=== PATIENT | male | born 1955 | race Caucasian/White ===

== ENCOUNTER 2016-08-08 19:36 | Observation (INO) | payer OTHER ==
[2016-08-08] MEDS ORDERED: ASPIRIN 325 MG TABLET PO ONE (19:57)
--- NOTE | 2016-08-08 20:00 | ER Document Report ---
ED Medical Screen (RME) - General Chief Complaint: Chest Pain Stated Complaint: CHEST PAIN Time Seen by Provider: 08/08/16 19:49 Notes: The patient is a 60-year-old male, past medical history hypertension, diabetes, presents with 1 day of intermittent substernal and left-sided chest pressure that is associated with heat, and not associated with exertion or food. His last stress test was in [place] last year, which he said was normal. He was pushing the cart in the shopping center today and noticed worsening chest pain, diaphoresis and he became pale. Patient currently without chest pain. PE: NAD. RRR. Lungs CTAB. I have greeted and performed a rapid initial assessment of this patient. A comprehensive ED assessment and evaluation of the patient, analysis of test results and completion of the medical decision making process will be conducted by additional ED providers. TRAVEL OUTSIDE OF THE [place] IN LAST 30 DAYS: No Past Medical History Renal/ Medical History: Denies: Hx Peritoneal Dialysis Physical Exam - Vital signs Vitals: Temp Pulse Resp BP Pulse Ox 97.5 F 65 16 116/69 90 L 08/08/16 19:44 08/08/16 19:44 08/08/16 19:44 08/08/16 19:44 08/08/16 19:44 Course - Vital Signs Vital signs: Temp Pulse Resp BP Pulse Ox 97.5 F 65 16 116/69 90 L 08/08/16 19:44 08/08/16 19:44 08/08/16 19:44 08/08/16 19:44 08/08/16 19:44
--- NOTE | 2016-08-08 20:31 | EKG REPORT ---
SEVERITY:- ABNORMAL ECG - SINUS RHYTHM LATERAL INFARCT, AGE INDETERMINATE : Confirmed by: Janak Horne MD 08-Aug-2016 20:30:35
[2016-08-08 20:49] LABS: ABSOLUTE EOSINOPHILS # (AUTO) 0.2 10^3/uL (0.0-0.6); ABSOLUTE LYMPHOCYTES (AUTO) 1.4 10^3/uL (0.5-4.7); ABSOLUTE MONOCYTES (AUTO) 0.5 10^3/uL (0.1-1.4); ABSOLUTE NEUT (AUTO) 5.3 10^3/uL (1.7-8.2); BASOPHILS % (AUTO) 0.2 % (0-2); EOSINOPHILS % (AUTO) 3.1 % (0-6); HEMATOCRIT 45.7 % (37.9-51.0); HEMOGLOBIN 14.6 g/dL (13.5-17.0); HGB HCT DIFFERENCE -1.9; LYMPHOCYTES % (AUTO) 18.7 % (13-45); MEAN CORPUSCULAR HEMOGLOBIN 31.8 pg (27.0-33.4); MEAN CORPUSCULAR HGB CONC 31.9 g/dL (32.0-36.0); MEAN CORPUSCULAR VOLUME 100 fl (80-97); MONOCYTES % (AUTO) 7.2 % (3-13); RED BLOOD COUNT 4.59 10^6/uL (4.35-5.55); RED CELL DISTRIBUTION WIDTH 13.4 % (11.5-14.0); SEGMENTED NEUTROPHILS % (AUTO) 70.8 % (42-78); WHITE BLOOD COUNT 7.4 10^3/uL (4.0-10.5)
--- NOTE | 2016-08-08 20:59 | RADIOLOGY REPORT (SQ) ---
EXAM DESCRIPTION: CHEST SINGLE VIEW COMPLETED DATE/TIME: 08/08/2016 8:45 pm REASON FOR STUDY: chest pain COMPARISON: None. EXAM PARAMETERS: NUMBER OF VIEWS: One view. TECHNIQUE: Single frontal radiographic view of the chest acquired. RADIATION DOSE: NA LIMITATIONS: None. FINDINGS: LUNGS AND PLEURA: No opacities, masses or pneumothorax. No pleural effusion. There is a n onspecific prominence of the interstitial markings. MEDIASTINUM AND HILAR STRUCTURES: No masses. Contour normal. HEART AND VASCULAR STRUCTURES: Heart normal in size. Normal vasculature. BONES: No acute findings. HARDWARE: None in the chest. OTHER: There is some mild elevation of the left hemidiaphragm with some apparent gaseous distention o f the fundus of the stomach. IMPRESSION: NO ACUTE RADIOGRAPHIC FINDING IN THE CHEST. TECHNICAL DOCUMENTATION: JOB ID: [id number]
[2016-08-08 21:01] LABS: ALANINE AMINOTRANSFERASE 35 U/L (21-72); ALBUMIN 3.8 g/dL (3.5-5.0); ALKALINE PHOSPHATASE 79 U/L (38-126); ANION GAP 13 (5-19); ASPARTATE AMINO TRANSFERASE 19 U/L (17-59); BILIRUBIN,DIRECT 0.3 mg/dL (0.0-0.4); BILIRUBIN,TOTAL 0.3 mg/dL (0.2-1.3); BLOOD UREA NITROGEN 22 mg/dL (7-20); CALCIUM 9.2 mg/dL (8.4-10.2); CARBON DIOXIDE 24 mmol/L (22-30); CHLORIDE 106 mmol/L (98-107); CREATINE KINASE 167 U/L (55-170); GLUCOSE 153 mg/dL (75-110); LIPASE 225.5 U/L (23-300); POTASSIUM 4.4 mmol/L (3.6-5.0); SODIUM 142.5 mmol/L (137-145); TOTAL PROTEIN 6.3 g/dL (6.3-8.2)
[2016-08-08 21:15] LABS: TROPONIN I < 0.012 ng/mL
--- NOTE | 2016-08-08 21:35 | ER Document Report ---
ED Cardiac - General Chief Complaint: Chest Pain Stated Complaint: CHEST PAIN Time Seen by Provider: 08/08/16 19:49 Notes: Patient is a 60-year-old male who comes emergency department for chief complaint of chest pain. Patient states that about 6 PM he was walking pushing a shopping cart and he became diaphoretic and had pain across his chest, he became nauseated, and his son states he became pale. He denies syncope, he denies shortness of breath. Symptoms did resolve, he denies current pain. Past medical history of hypertension, type 2 diabetes, obesity, former tobacco use, currently vapes. He states he had a stress test about a year ago in [place] where he lives, he is here on vacation, he believes it was negative. Father had a heart attack. TRAVEL OUTSIDE OF THE [place] IN LAST 30 DAYS: No - Related Data Allergies/Adverse Reactions: No Known Allergies Allergy (Unverified 08/08/16 20:03) Home Medications: Current Home Medications Atorvastatin Calcium 80 mg PO DAILY 08/09/16 [History] Bupropion HCl [Wellbutrin Sr 150 mg Tablet] 1 tab PO DAILY 08/09/16 [History] Cholecalciferol (Vitamin D3) [Vitamin D3] 1,000 unit PO DAILY 08/09/16 [History] Finasteride [Proscar 5 mg Tablet] 5 mg PO DAILY 08/09/16 [History] Gabapentin [Neurontin] 800 mg PO TID 08/09/16 [History] Lisinopril [Prinivil 5 mg Tablet] 5 mg PO DAILY 08/09/16 [History] Metformin HCl 500 mg PO BID 08/09/16 [History] Metoprolol Succinate [Toprol Xl] 100 mg PO DAILY 08/09/16 [History] [place]-3/Dha/Epa/Fish Oil [[place] 3 500 Softgel] 2,000 mg PO BID 08/09/16 [History ] Omeprazole 20 mg PO BID 08/09/16 [History] Sumatriptan Succinate [Imitrex Inj/Pf 6 Mg/0.5 Ml Sdv] 6 mg SUBCUT ASDIR PRN 06/21 [History] Tamsulosin HCl [Flomax] 0.4 mg PO BID 08/09/16 [History] Trazodone HCl [Desyrel] 300 mg PO QHS 08/09/16 [History] Ubidecarenone [Co Q-10] 10 mg PO DAILY 08/09/16 [History] Past Medical History - General Information source: Patient - Social History Smoking Status: Never Smoker Frequency of alcohol use: None Drug Abuse: None Lives with: Family Family History: Reviewed & Not Pertinent Patient has suicidal ideation: No Patient has homicidal ideation: No - Past Medical History Cardiac Medical History: Reports: Hx Hypertension Endocrine Medical History: Reports: Hx Diabetes Mellitus Type 2 Renal/ Medical History: Denies: Hx Peritoneal Dialysis - Immunizations Hx Diphtheria, Pertussis, Tetanus Vaccination: Yes Review of Systems - Review of Systems Constitutional: No symptoms reported EENT: No symptoms reported Cardiovascular: See HPI Respiratory: No symptoms reported Gastrointestinal: No symptoms reported Genitourinary: No symptoms reported Male Genitourinary: No symptoms reported Musculoskeletal: No symptoms reported Skin: No symptoms reported Hematologic/Lymphatic: No symptoms reported Neurological/Psychological: No symptoms reported Physical Exam - Vital signs Vitals: Temp Pulse Resp BP Pulse Ox 97.5 F 65 16 116/69 90 L 08/08/16 19:44 08/08/16 19:44 08/08/16 19:44 08/08/16 19:44 08/08/16 19:44 Interpretation: Normal - General General appearance: Appears well, Alert In distress: None - HEENT Head: Normocephalic, Atraumatic Eyes: Normal Pupils: PERRL - Respiratory Respiratory status: No respiratory distress Chest status: Nontender. No: Tender Breath sounds: Normal. No: Decreased air movement Chest palpation: Normal - Cardiovascular Rhythm: Regular. No: Tachycardia Heart sounds: Normal auscultation, S1 appreciated, S2 appreciated Murmur: No - Abdominal Inspection: Normal Distension: No distension Bowel sounds: Normal Tenderness: Nontender. No: Tender Organomegaly: No organomegaly - Back Back: Normal, Nontender - Extremities General upper extremity: Normal inspection, Nontender, Normal color, Normal ROM , Normal temperature General lower extremity: Normal inspection, Nontender, Normal color, Normal ROM , Normal temperature, Normal weight bearing. No: Jori's sign - Neurological Neuro grossly intact: Yes Cognition: Normal Orientation: AAOx4 [place] Coma Scale Eye Opening: Spontaneous Murphy Coma Scale Verbal: Oriented Murphy Coma Scale Motor: Obeys Commands Murphy Coma Scale Total: 15 Speech: Normal Motor strength normal: LUE, RUE, LLE, RLE Sensory: Normal - Psychological Associated symptoms: Normal affect, Normal mood - Skin Skin Temperature: Warm Skin Moisture: Dry Skin Color: Normal Course - Re-evaluation Re-evalutation: EKG showing slightly inverted T waves in lateral leads, nonspecific. No ST segment abnormalities. Sinus rhythm. No comparison. Initial troponin negative, workup generally unremarkable, chest x-ray unremarkable. Patient's symptoms are very concerning and suspicious for cardiac nature, however he has not had any chest pain symptoms, he remains with unremarkable vital signs and well-appearing with no complaints. With multiple comorbidities including obesity, hypertension, diabetes, age. Second troponin is fortunately negative. Discussed with Dr. Swanson. Patient, will discuss with internal medicine for telemetry observation for chest pain rule out. Past with Dr. Mcmahon, internal medicine, patient will be admitted to telemetry observation. - Vital Signs Vital signs: Temp Pulse Resp BP Pulse Ox 97.2 F 57 L 20 115/73 92 08/09/16 06:18 08/09/16 06:18 08/09/16 06:18 08/09/16 06:18 08/09/16 06:18 - Laboratory Result Diagrams: 08/08/16 20:30 08/08/16 20:30 Laboratory results interpreted by me: 08/08/16 08/08/16 20:30 20:30 MCV 100 H MCHC 31.9 L BUN 22 H Glucose 153 H Discharge - Discharge Clinical Impression: Chest pain Qualifiers: Chest pain type: unspecified Qualified Code(s): R07.9 - Chest pain, unspecified Disposition: ADMITTED OBSERVATION Admitting Provider: Hospitalist Unit Admitted: Telemetry
[2016-08-09] MEDS ORDERED: INSULIN LISPRO 100 UNIT/ML 3 ML VIAL SUBCUT PRN (05:20)
[2016-08-09] MEDS ORDERED: DEXTROSE 50%-WATER 25 GM/50 ML DISP.SYRIN IV PRN ×2 (05:20)
[2016-08-09] MEDS ORDERED: DEXTROSE 40% GEL 15 GM TUBE PO PRN ×2 (05:20)
[2016-08-09] MEDS ORDERED: GLUCAGON,HUMAN RECOMB 1 MG INJ IM PRN (05:20)
[2016-08-09] MEDS ORDERED: PROMETHAZINE HCL 25 MG TABLET PO PRN (05:20)
[2016-08-09] MEDS ORDERED: ACETAMINOPHEN 325 MG TABLET PO PRN (05:20)
[2016-08-09 07:16] LABS: CHOLESTEROL 124.92 mg/dL (0-200); Direct HDL 39 mg/dL (>40); TRIGLYCERIDES 128 mg/dL (<150)
[2016-08-09 07:26] LABS: DIRECT LDL 71 mg/dL (<100)
[2016-08-09] MEDS ORDERED: MAG HYDROX/AL HYDROX/SIMETH SUSP 30 ML UDCUP PO PRN (07:39)
[2016-08-09] MEDS ORDERED: MAGNESIUM HYDROXIDE SUSP 30 ML UDCUP PO PRN (07:39)
--- NOTE | 2016-08-09 08:45 | PDOC H&P ---
History of Present Illness Admission Date/PCP: 08/09/16 03:42 OOT--Pt. vacationing from [place]. Patient complains of: Chest pain History of Present Illness: GEM NARAYAN is a 60 year old morbidly obese male, with underlying diet-controlled diabetes mellitus, obstructive sleep apnea, hyperlipidemia, posttraumatic stress disorder, peripheral diabetic neuropathy, easy bruising, hypertension, and early family history of coronary artery disease, in the persons of his father and probably his sister, who presents to the emergency room for evaluation of above complaint. Patient has been discussed with emergency room nurse practitioner who evaluated the patient. He describes the onset while pushing a shopping cart of pressure-like substernal chest pain without radiation. Nothing in particular made the pain worse or better. Simply resolved on its own and has not recurred. Has had prior perhaps slightly different episodes in the past. No syncope or shortness of breath. No fever or chills, vomiting, diarrhea or dysuria. Patient does state that over the last day or so he has felt quite fatigued, and intermittently mildly nauseous. No previous myocardial infarction, or congestive heart failure. No history of pulmonary embolus or DVT. No recent long trip with prolonged inactivity, or unusual lower extremity swelling or tenderness. Reportedly a negative nuclear stress study in 2015 at the [facility] in [facility]. Currently resting quietly, chest pain-free. Laboratory results are listed in [facility] and are reviewed. X-ray summary results are listed below, with full report(s) reviewed. EKG reviewed. No old EKG available for comparison. Social history/personal habits: . Has children. Retired. No tobacco use for 6 months. No alcohol or illicit drug use. No known drug allergies. Home medications initially autopopulated into [facility] may not accurately reflect patient's true medications, dosages, and/or frequencies. mechanical test technician to reconcile medications. Unfortunately, patient not certain of all medications/dosages/frequencies. REVIEW OF SYSTEMS: Constitutional: No fever or chills. Eyes: Wears glasses. ENT: No swallowing problems or complaints. Partial hearing loss. Pulmonary: No current complaints. Cardiovascular: See history and present illness. Gastrointestinal: See history and present illness. Skin: No current complaints, including rashes. Hematologic: Easy bruising. Neurologic: Diabetic peripheral neuropathy affecting all 4 extremities. Musculoskeletal: No current or chronic joint complaints, such as arthritis. Psychiatric: Posttraumatic stress disorder. Endocrine: No current complaints, including polyuria. Genitourinary: No current complaints, including dysuria. PHYSICAL EXAMINATION: 6 feet 4 inches tall. 149.5 kg. BMI 40.1 kg/m.Temperature 97.2. Pulse 57 and regular. Blood pressure 115/73. Respirations are 20 and unlabored. 92% saturation on room air. Morbidly obese otherwise well-developed male appearing perhaps a bit younger than his stated age. Pleasant awake alert and cooperative. No obvious distress other than somewhat anxious. Son and are present at his side; patient approves. Skin is warm and dry. No grossly obvious evidence of rash in areas of skin examined. No subcutaneous nodules palpated. ENT: Hearing grossly normal to normal conversation. Tongue midline on protrusion pink and slightly moist. Eyes: No scleral icterus. Pupils equal and reactive to light at 4 mm. Milfay conjunctivae. Neck is supple and nontender to gentle active range of motion and palpation. Midline trachea. No palpable thyroid nodule mass enlargement or tenderness. Lymphatic: No palpable cervical or clavicular nodes. Neck and lymphatic exams limited by patient body habitus. Psychiatric: Reasonable insight into acute and chronic medical issues. Oriented to time location and why here. Lungs: Auscultation reveals clear and equal breath sounds bilaterally. No use of accessory respiratory muscles. Cardiovascular: Heart regular rate and rhythm, without gallop murmur or rub. No carotid or abdominal aortic bruits. No ankle or pedal edema. Faintly palpable dorsalis pedis pulses. Abdomen:soft obese nontender with positive bowel sounds. Unable to adequately evaluate abdomen for masses or organomegaly due to body habitus. Compression of neither his upper abdomen nor sternum reproduces his previously noted chest discomfort. Extremities: Feet are warm and dry. No calf tenderness to compression. No grossly obvious visual evidence of calf swelling. Gentle manipulation of lower extremities fails to reveal any obvious evidence of injury or instability to knees hips or ankles. Neurologic: Moves upper extremities grossly normally. Patellar reflexes absent. Absent Babinski. Light touch is intact at feet. Dorsiflexion and plantarflexion of feet 5 / 5 and symmetric. Past Medical History Cardiac Medical History: Reports: Hyperlipidema, Hypertension Denies: Congestive Heart Failure, DVT, Myocardial Infarction, Pulmonary Embolism Pulmonary Medical History: Reports: Sleep Apnea - Uncertain settings with home CPAP Denies: Asthma, Chronic Obstructive Pulmonary Disease (COPD) EENT Medical History: Reports: Eyes - Glasses, Ears - Partial hearing loss Denies: Throat Neurological Medical History: Reports: Other - Diabetic peripheral neuropathy affecting all 4 extremities Denies: Hemorrhagic CVA, Ischemic CVA, Seizures Endocrine Medical History: Reports: Diabetes Mellitus Type 2 Denies: Diabetes Mellitus Type 1, Hyperthyroidism, Hypothyroidism Malignancy Medical History: Reports: Other - Prostate cancer status post external radiation of same GI Medical History: Denies: Cirrhosis, Gastroesophageal Reflux Disease, Hepatitis, Peptic Ulcer Disease Musculoskeltal Medical History: Denies: Arthritis Skin Medical History: Reports: None Psychiatric Medical History: Reports: Post Traumatic Stress Disorder Denies: Alcohol Dependency, Substance Abuse, Tobacco Dependency Hematology: Reports: Other - Easy bruising Infectious Medical History: Denies: Clostridium Difficile, Hepatitis B, Hepatitis C, Methicillin- Resistant Staph Aureus Past Surgical History Past Surgical History: Reports: Tonsillectomy Social History Information Source: Patient, Relative - Family, Emergency Med Personnel, [facility] Records Lives with: Family, Spouse/Significant other Smoking Status: Unknown if Ever Smoked Frequency of Alcohol Use: None Hx Recreational Drug Use: No Hx Prescription Drug Abuse: No - Advance Directive Resuscitation Status: Full Code Surrogate healthcare decision maker:: Family History Family History: Reviewed & Not Pertinent Parental Family History Reviewed: Yes - Mother quite elderly, with Alzheimer's. Father of PA at 40 Children Family History Reviewed: Yes - Panic disorder Sibling(s) Family History Reviewed.: Yes - Brother with multiple sclerosis Medication/Allergy Home Medications: Atorvastatin Calcium 80 mg PO DAILY 08/09/16 Bupropion HCl [Wellbutrin Sr 150 mg Tablet] 1 tab PO DAILY 08/09/16 Cholecalciferol (Vitamin D3) [Vitamin D3] 1,000 unit PO DAILY 08/09/16 Finasteride [Proscar 5 mg Tablet] 5 mg PO DAILY 08/09/16 Gabapentin [Neurontin] 800 mg PO TID 08/09/16 Lisinopril [Prinivil 5 mg Tablet] 5 mg PO DAILY 08/09/16 Metformin HCl 500 mg PO BID 08/09/16 Metoprolol Succinate [Toprol Xl] 100 mg PO DAILY 08/09/16 [place]-3/Dha/Epa/Fish Oil [[place] 3 500 Softgel] 2,000 mg PO BID 08/09/16 Omeprazole 20 mg PO BID 08/09/16 Sumatriptan Succinate [Imitrex Inj/Pf 6 mg/0.5 ml Sdv] 6 mg SUBCUT ASDIR PRN 06/21 Tamsulosin HCl [Flomax] 0.4 mg PO BID 08/09/16 Trazodone HCl [Desyrel] 300 mg PO QHS 08/09/16 Ubidecarenone [Co Q-10] 10 mg PO DAILY 08/09/16 Allergies/Adverse Reactions: No Known Allergies Allergy (Unverified 08/08/16 20:03) Physical Exam Vital Signs: Temp Pulse Resp BP Pulse Ox 97.2 F 57 L 20 115/73 92 08/09/16 06:18 08/09/16 07:00 08/09/16 06:18 08/09/16 06:18 08/09/16 06:18 Intake & Output 08/08/16 08/09/16 08/10/16 00:59 00:59 00:59 Weight 149.5 kg Results Laboratory Results: 08/09/16 06:54 Triglycerides 128 Cholesterol 124.92 LDL Cholesterol Direct 71 VLDL Cholesterol 26.0 HDL Cholesterol 39 L 08/09/16 06:54 Troponin I 0.014 Impressions: Chest X-Ray 08/08/16 19:56 IMPRESSION: NO ACUTE RADIOGRAPHIC FINDING IN THE CHEST. Assessment & Plan - Diagnosis (1) WINSTON (obstructive sleep apnea) Is this a current diagnosis for this admission?: YesPlan: CPAP (2) Chest pain Qualifiers: Chest pain type: unspecified Qualified Code(s): R07.9 - Chest pain, unspecified Is this a current diagnosis for this admission?: YesPlan: Patient will be placed in observation bed under chest pain protocol. Patient understands to notify staff should chest pain recur. Serial troponin . Repeat EKG. lipid panel. I have strongly encouraged patient to be careful getting out of bed without notifying staff, to avoid a fall with injury. Knee high SCDs for DVT prophylaxis, along with subcu heparin. Impression and plans were discussed with patient, , and son, all of whom concur . Time spent in evaluation and management of patient: 68 minutes. (3) Family history of early CAD Is this a current diagnosis for this admission?: Yes (4) Diabetes mellitus type 2 in obese Is this a current diagnosis for this admission?: YesPlan: Diabetic cardiac diet. Accu-Cheks with appropriate sliding scale coverage. (5) HLD (hyperlipidemia) Qualifiers: Hyperlipidemia type: unspecified Qualified Code(s): E78.5 - Hyperlipidemia, unspecified Is this a current diagnosis for this admission?: YesPlan: Lipid panel. Resume home medications as appropriate once these have been determined and reviewed. - Time Time Spent: 50 to 70 Minutes Anticipated discharge: Home Within: within 24 hours
[2016-08-09] MEDS ORDERED: LISINOPRIL 5 MG TABLET PO SCH (10:00)
[2016-08-09] MEDS ORDERED: METOPROLOL SUCCINATE 50 MG TAB.SR.24H PO SCH (10:00)
[2016-08-09] MEDS ORDERED: DOCUSATE SODIUM 100 MG CAPSULE PO SCH (10:00)
[2016-08-09] MEDS ORDERED: ATORVASTATIN CALCIUM 80 MG TABLET PO SCH (10:00)
[2016-08-09] MEDS ORDERED: METFORMIN HCL 500 MG TABLET PO SCH (10:00)
[2016-08-09] MEDS ORDERED: TAMSULOSIN HCL 0.4 MG CAP.SR.24H PO SCH (10:00)
[2016-08-09] MEDS ORDERED: (PENDING PHARMACY ID) (Bupropion Hcl [Wellbutrin Sr 150 Mg Tablet] 1 TAB) PO SCH (10:00)
[2016-08-09] MEDS ORDERED: FINASTERIDE 5 MG TABLET PO SCH (10:00)
[2016-08-09] MEDS ORDERED: BUPROPION HCL 75 MG TABLET PO SCH (10:00)
[2016-08-09] MEDS ORDERED: KETOROLAC TROMETHAMINE INJ/PF 30 MG/1 ML SDV IV ONE (10:32)
[2016-08-09] MEDS ORDERED: KETOROLAC TROMETHAMINE INJ/PF 30 MG/1 ML SDV ONE (10:36)
[2016-08-09 11:06] VITALS: BP 115/73
[2016-08-09] MEDS ORDERED: GABAPENTIN 400 MG CAPSULE PO SCH (14:00)
[2016-08-09] MEDS ORDERED: HEPARIN SOD (PORCINE) 5,000 UNIT/ML 1 ML SYRINGE SUBCUT SCH (14:00)
--- NOTE | 2016-08-09 14:21 | PDOC DISCHARGE SUMMARY ---
General - Admit/Disc Date/PCP Admission Date/Primary Care Provider: 08/09/16 07:39 Discharge Date: 08/09/16 - Discharge Diagnosis (1) Chest pain Is this a current diagnosis for this admission?: YesSummary: Ruled out for acute coronary syndrome. Most likely GI in origin. He has had a negative nuclear stress test one year ago and does not want to do another one now. He will follow up with his primary care provider once he returns home to [place]. (2) WINSTON (obstructive sleep apnea) Is this a current diagnosis for this admission?: YesSummary: Patient states the mask he currently has does not fit appropriately. He was discharged home with mask he had while here. He has a follow up sleep study scheduled (3) Diabetes mellitus type 2 in obese Is this a current diagnosis for this admission?: YesSummary: Continue current medications and sliding scale coverage (4) HLD (hyperlipidemia) Is this a current diagnosis for this admission?: YesSummary: Continue current statin therapy (5) Morbid obesity with BMI of 40.0-44.9, adult Is this a current diagnosis for this admission?: YesSummary: Patient has been counseled - Additional Information Resuscitation Status: Full Code Discharge Diet: Diabetic Discharge Activity: Activity As Tolerated, Balance Activity w/Rest Home Medications: Atorvastatin Calcium 80 mg PO DAILY 08/09/16 Bupropion HCl [Wellbutrin Sr 150 mg Tablet] 1 tab PO DAILY 08/09/16 Cholecalciferol (Vitamin D3) [Vitamin D3] 1,000 unit PO DAILY 08/09/16 Finasteride [Proscar 5 mg Tablet] 5 mg PO DAILY 08/09/16 Gabapentin [Neurontin] 800 mg PO TID 08/09/16 Lisinopril [Prinivil 5 mg Tablet] 5 mg PO DAILY 08/09/16 Metformin HCl 500 mg PO BID 08/09/16 Metoprolol Succinate [Toprol Xl] 100 mg PO DAILY 08/09/16 [place]-3/Dha/Epa/Fish Oil [[place] 3 500 Softgel] 2,000 mg PO BID 08/09/16 Omeprazole 20 mg PO BID 08/09/16 Sumatriptan Succinate [Imitrex Inj/Pf 6 mg/0.5 ml Sdv] 6 mg SUBCUT ASDIR PRN 06/21 Tamsulosin HCl [Flomax] 0.4 mg PO BID 08/09/16 Trazodone HCl [Desyrel] 300 mg PO QHS 08/09/16 Ubidecarenone [Co Q-10] 10 mg PO DAILY 08/09/16 History of Present Illness Patient complains of: Substernal chest pain that lasted on and off for 3 hours with diaphoresis History of Present Illness: GEM NARAYAN is a 60 year old morbidly obese male, with underlying diet-controlled diabetes mellitus, obstructive sleep apnea, hyperlipidemia, posttraumatic stress disorder, peripheral diabetic neuropathy, easy bruising, hypertension, and early family history of coronary artery disease and the person 's of his father and probably his sister who presents to the emergency room for evaluation of above complaint. Patient has been discussed with emergency room nurse practitioner who evaluated the patient. He describes the onset while pushing a shopping cart of pressure-like substernal chest pain without radiation. Nothing in particular made the pain worse or better. Simply resolved on its own and has not recurred. Has had prior perhaps slightly different episodes in the past. No syncope or shortness of breath. No fever or chills, vomiting, diarrhea or dysuria. Patient does state that over the last day or so he has felt quite fatigued, and intermittently mildly nauseous. No previous myocardial infarction, or congestive heart failure. No history of pulmonary embolus or DVT. No recent long trip with prolonged inactivity, or unusual lower extremity swelling or tenderness. Hospital Course Hospital Course: Patient was admitted to telemetry overnight. He had no further episodes of chest discomfort. Serial troponins were obtained that were all negative. Fasting lipid profile was unremarkable. He feels well and ready for discharge. Physical Exam Vital Signs: Temp Pulse Resp BP Pulse Ox 98.0 F 56 L 20 115/73 93 08/09/16 11:05 08/09/16 11:05 08/09/16 11:05 08/09/16 11:05 08/09/16 11:05 General appearance: PRESENT: no acute distress, morbidly obese, well-developed, well-nourished Head exam: PRESENT: atraumatic, normocephalic Eye exam: PRESENT: conjunctiva pink, EOMI, PERRLA. ABSENT: scleral icterus Ear exam: PRESENT: normal external ear exam Mouth exam: PRESENT: moist, tongue midline Neck exam: ABSENT: carotid bruit, JVD, lymphadenopathy, thyromegaly Respiratory exam: PRESENT: clear to auscultation gwendolyn. ABSENT: rales, rhonchi, wheezes Cardiovascular exam: PRESENT: RRR. ABSENT: diastolic murmur, rubs, systolic murmur Pulses: PRESENT: normal dorsalis pedis pul Vascular exam: PRESENT: normal capillary refill GI/Abdominal exam: PRESENT: normal bowel sounds, soft. ABSENT: distended, guarding, mass, organolmegaly, rebound, tenderness Rectal exam: PRESENT: deferred Extremities exam: PRESENT: full ROM. ABSENT: calf tenderness, clubbing, pedal edema Musculoskeletal exam: PRESENT: ambulatory, full ROM Neurological exam: PRESENT: alert, awake, oriented to person, oriented to place , oriented to time, oriented to situation, CN II-XII grossly intact. ABSENT: motor sensory deficit Psychiatric exam: PRESENT: appropriate affect, normal mood. ABSENT: homicidal ideation, suicidal ideation Skin exam: PRESENT: dry, intact, warm. ABSENT: cyanosis, rash Results Impressions: Chest X-Ray 08/08/16 19:56 IMPRESSION: NO ACUTE RADIOGRAPHIC FINDING IN THE CHEST. Qualifiers PATEINT BEING DISCHARGED WITH ANY OF THE FOLLOWING DIAGNOSIS?: No Plan Discharge Plan: Home with family Time Spent: Less than 30 Minutes
[2016-08-09] MEDS ORDERED: LANSOPRAZOLE 15 MG TAB.RAP.DR PO SCH (16:00)
[2016-08-09] MEDS ORDERED: TRAZODONE HCL 50 MG TABLET PO SCH (22:00)
[2016-08-09] MEDS ORDERED: (PENDING PHARMACY ID) (Trazodone Hcl [Desyrel] 300 MG) PO SCH (22:00)
== END 2016-08-09 11:41 | disposition home or self-care (01) ==
LOC: ER 19:36 → EH 08-09 03:42 → UNDOADMOB 08-09 03:42 → EH 08-09 06:13 → 5 08-09 06:13 → EH 08-09 07:39
PROVIDERS: ADMIT Family Medicine; ATTEND Family Medicine
DX: R07.89 Other chest pain (principal); G47.33 Obstructive sleep apnea (adult) (pediatric); E11.42 Type 2 diabetes mellitus with diabetic polyneuropathy; E78.5 Hyperlipidemia, unspecified; E66.01 Morbid (severe) obesity due to excess calories; I10 Essential (primary) hypertension; R53.83 Other fatigue; R11.0 Nausea; R23.1 Pallor; R61 Generalized hyperhidrosis; Z68.41 Body mass index [BMI] 40.0-44.9, adult; F43.10 Post-traumatic stress disorder, unspecified; Z82.49 Family history of ischemic heart disease and other diseases of the circulatory system; Z85.46 Personal history of malignant neoplasm of prostate; Z92.3 Personal history of irradiation; Z82.69 Family history of other diseases of the musculoskeletal system and connective tissue; Z79.84 Long term (current) use of oral hypoglycemic drugs; Z79.899 Other long term (current) drug therapy; Z87.891 Personal history of nicotine dependence
CPT/HCPCS: 93005; 99285; 36415 ×2; 82962; 82550; 83690; 85025; 80053; 84484 ×2; 80061; 83880; 71010; 93010; J1885; G0378